=== PATIENT | male | born 2000 | race Caucasian/White ===

== ENCOUNTER 2019-06-16 14:13 | Outpatient (CLI) | payer OTHER ==
--- NOTE | 2019-06-16 15:22 | ULT ---
ULTRASOUND ABDOMEN LIMITED: (RIGHT UPPER QUADRANT) DATE: 06/16/2019. HISTORY: A 19-year-old male with right upper quadrant abdominal pain and elevated liver function tests. FINDINGS: Gallbladder: Two tiny gallbladder polyps, on the order of 2-3 mm each. No gallstone identified. Sca ttered echogenic foci in lumen suggestive of echogenic sludge. Wall thickness within normal limits, 2 mm. No pericholecystic fluid. Common duct: 2 mm. Liver: Normal. Pancreas: Normal. Right kidney: Normal. IMPRESSION: Gallbladder polyps and echogenic sludge/debris. KASSY Mcduffie POS: [facility]
== END 2019-06-16 14:14 | disposition home or self-care (01) ==
LOC: ULT 14:13
PROVIDERS: ATTEND Physician Assistant
DX: R10.11 Right upper quadrant pain (principal); R94.5 Abnormal results of liver function studies; K82.4 Cholesterolosis of gallbladder; R93.3 Abnormal findings on diagnostic imaging of other parts of digestive tract
CPT/HCPCS: 76705